=== PATIENT | female | born 1990 | race Caucasian/White ===

== ENCOUNTER 2020-03-21 20:48 | Emergency (ER) | payer OTHER ==
[~2020-03-21] VITALS: Ht 165.1 cm; Wt 136.1 kg
[~2020-03-21 20:48] MED LIST: HYDROCODONE BIT1 T11 PO; KEFLEX500 MG PO
[2020-03-21 21:39] LABS: BILIRUBIN Negative (Negative); BLOOD Negative (Negative); CLARITY Clear (Clear); COLOR Yellow (Yellow); GLUCOSE Negative (Negative); KETONE Negative (Negative); LEUKO ESTERASE Negative (Negative); NITRITE Negative (Negative); PH 5.5 (4.5-8.0); SPECIFIC GRAVITY >= 1.030 (1.001-1.030)
[2020-03-21 21:48] LABS: BACTERIA 2+; MUCOUS TRACE; RBC 0-2 rbc/hpf (0-2); WBC 0-2 wbc/hpf (0-5)
[2020-03-21] MEDS ORDERED: NAPROSYN500 MG PO (22:02)
== END 2020-03-21 22:27 | disposition home or self-care (01) ==
LOC: ED 20:48
PROVIDERS: Internal Medicine
DX: S39.012A Strain of muscle, fascia and tendon of lower back, initial encounter (principal); X50.9XXA Other and unspecified overexertion or strenuous movements or postures, initial encounter; Y93.89 Activity, other specified; Y92.89 Other specified places as the place of occurrence of the external cause; Y99.8 Other external cause status

== ENCOUNTER → 2020-04-10 | Outpatient (CLI) | payer OTHER ==
[~2020-04-10] MED LIST changes: +NAPROSYN500 MG PO
== END | disposition home or self-care (01) ==
LOC: US 13:39
PROVIDERS: ATTEND Nurse Practitioner Family
DX: R10.9 Unspecified abdominal pain (principal)

== ENCOUNTER 2022-11-09 17:25 | Emergency (ER) | payer BC ==
[2022-11-09] MEDS ORDERED: NAPROXEN500 MG PO (20:33)
[2022-11-09] MEDS ORDERED: NAPROSYN500 MG PO ×3 (20:34→20:36)
[2022-11-09] MEDS ORDERED: CYCLOBENZAPRINE10 MG PO (20:36)
== END 2022-11-09 20:52 | disposition home or self-care (01) ==
LOC: ED 17:25
DX: M54.9 Dorsalgia, unspecified (principal); M25.551 Pain in right hip